=== PATIENT | female | born 1990 | race Caucasian/White ===

== ENCOUNTER 2019-02-23 06:23 | Inpatient (IN) ==
[2019-02-23] MEDS ORDERED: OXYTOCIN 30 UNITS/500 ML BAG IV PRN ×3 (06:44→18:02)
[2019-02-23] MEDS ORDERED: VANCOMYCIN HCL 1,000 MG in SODIUM CHLORIDE 0.9% 250 ML IV STA (06:44)
--- NOTE | 2019-02-23 06:44 | History & Physical Report ---
Date of Service February 23, 2019 Assessment & Plan (1) SROM (spontaneous rupture of membranes): Making cervical change. Will start vanco for Group B Strep. Will order pitocin to profile it in case it is needed, but exp mgmt of labor for now. Epidural on request. Present on Admission?: Yes History of Present Illness Chief Complaint: Patient presents due to SROM about 2 hours ago at home. Contractions have now begun and are painful enough to breathe through. No VB, good FM. Fluid is Clear. Noted to be Group B Strep positive with resistance and allergy such that Vanco is planned in labor. Primary Care Provider: NO PCP Allergies Allergy/AdvReac Type Severity Reaction Status Date / Time Penicillins Allergy Verified 02/21/19 16:48 Home Medications Home Medications Medication Instructions Recorded Confirmed Type cholecalciferol (vitamin D3) PO 02/21/19 02/21/19 History prenat.vits,marlene,[id number] PO 02/21/19 02/21/19 History Patient History Medical History Female infertility History of varicella Surgical History S/P wisdom tooth extraction Family History Mother Thyroid disease Social History Smoking Status: Never smoker Review of Systems All systems reviewed & are unremarkable except as noted in HPI & below Physical Exam Constitutional: WD/WN, vitals as above + in distress Eyes: PERRL, conjunctivae normal, anicteric sclerae ENMT: external ear and nose normal, oropharynx normal Neck: supple Respiratory: normal respiratory effort and able to speak in complete sentences; no respiratory distress Cardiovascular: Rate/Rhythm: regular rate and regular rhythm Extremities: + pedal edema Gastrointestinal (Abdomen): Gravid / AGA, nontender Musculoskeletal: no cyanosis or clubbing, extremities motor strength 5/5 Skin: no rashes, warm and dry Neurologic: patellar DTR's 2+ bilat, sensation intact Psychiatric: A+Ox3, euthymic affect Genitourinary: Speculum/Bimanual Exam: no vaginal lesions, no vaginal bleeding and uterus nontender OB Exam Abdomen: + vertex, + estimated weight (7) and + regular contractions (Q3) Manual OB Exam: + cervical dilation 3 cm, + cervical effacement 100%, + station -2 and + amniotic fluid clear and nitrazine positive OB Exam Monitor Tracing: + external FHT monitor used, + external uterine monitor used and + category I Lymphatic: no cervical or axillary lymphadenopathy
[2019-02-23] MEDS: LACTATED RINGER'S 1,000 ML IV PRN ×3 (07:00→14:05)
[2019-02-23 07:03] LABS: Hematocrit (blood only) 33.6 % (37-47); Hemoglobin 11.6 g/dL (12.0-16.0); Mean Corpuscular Volume 92.1 fL (80-100); Mean Platelet Volume 10.3 fL (7.4-10.4); Platelet Count 195 K/uL (130-400); RDW Coefficient of Variation 13.4 % (11.5-14.5); RDW Standard Deviation 44.9 fL (36.4-46.3); Red Blood Count 3.65 M/uL (4.2-5.4); White Blood Count 18.87 K/uL (4.8-10.8)
[2019-02-23 07:15] LABS: Mean Corpuscular Hgb Conc 34.5 g/dL (32-36)
[2019-02-23] MEDS ORDERED: fentaNYL citrate 100 MCG/2 ML VIAL ONE (07:17)
[2019-02-23] MEDS ORDERED: ePHEDrine sulfate 50 MG/ML AMP ONE (07:17)
[2019-02-23] MEDS ORDERED: BUPIVACAINE 0.25% 30 ML VIAL ONE (07:17)
[2019-02-23] MEDS ORDERED: fentaNYL 2MCG/ML ROPIV 1.25MG/ML 100 ML BAG EPI ONE (07:18)
--- NOTE | 2019-02-23 07:24 | Anesthesiology Consultation ---
Date of Service February 23, 2019 Assessment & Plan (1) Encounter for pre-operative examination: Chart Review Chart Review: Acceptable Risk for Labor Epidural History Height/Weight Height: 5 ft 2 in Weight: 68.946 kg Allergies Allergy/AdvReac Type Severity Reaction Status Date / Time Penicillins Allergy Verified 02/21/19 16:48 Medications Home Medications Medication Instructions Recorded Confirmed Last Taken cholecalciferol (vitamin D3) PO 02/21/19 02/21/19 Unknown prenat.vits,marlene,[id number] PO 02/21/19 02/21/19 Unknown Active Medications Generic Name Dose Route Start Last Admin Trade Name Freq PRN Reason Stop Dose Admin Lactated Ringer's 1,000 mls @ 125 mls/hr 02/23/19 06:44 02/23/19 07:00 Lr IV 02/25/19 06:43 999 mls/hr .Q8H PRN Administration L&D Protocol Protocol Past Medical History Medical History Female infertility History of varicella Past Family History Family History Mother Thyroid disease Past Surgical History Surgical History S/P wisdom tooth extraction Social History Smoking Status: Never smoker Hx Alcohol Use: No Hx Substance Use: No Physical Exam Vital Signs Last Vital Signs Temp 36.8 C 02/23/19 06:35 Pulse 100 H 02/23/19 06:39 Resp 18 02/23/19 06:39 BP 144/77 H 02/23/19 06:39 Testing Laboratory Results 02/23/19 06:51
[2019-02-23] MEDS ORDERED: NALOXONE HCL 1 MG in SODIUM CHLORIDE 0.9% 1000ML 1,000 ML IV PRN (07:46)
[2019-02-23] MEDS ORDERED: NALOXONE HCL 0.4 MG/1 ML VIAL/CARP IV PRN (07:46)
[2019-02-23] MEDS ORDERED: fentaNYL 2MCG/ML ROPIV 1.25MG/ML 100 ML BAG EPI PRN (07:46)
[2019-02-23] MEDS ORDERED: ONDANSETRON INJ 2 MG/ML 2 ML VIAL IV PRN (07:46)
[2019-02-23] MEDS ORDERED: ePHEDrine sulfate 50 MG/ML AMP IV PRN (07:46)
--- NOTE | 2019-02-23 11:18 | Obstetrical Progress Note ---
Date of Service February 23, 2019 Subjective Patient has been on vancomycin for GBS prophylaxis due to PCN allergy and clindamycin resistance. Now has maternal fever and tachycardia. Will give IV fluid bolus, and will start gentamicin 5mg/kg Q24h dose for chorioamnionitis. Results & Data Vital Signs (Past 12 Hours) Vital Signs Temp Pulse Resp BP Pulse Ox 02/23/19 11:16 92 H 97 02/23/19 11:11 85 97 02/23/19 11:07 85 117/69 02/23/19 11:06 83 97 02/23/19 11:01 96 H 99 02/23/19 10:56 91 H 98 02/23/19 10:51 91 H 117/67 98 02/23/19 10:46 85 98 02/23/19 10:41 87 97 02/23/19 10:36 86 118/66 98 02/23/19 10:31 89 98 02/23/19 10:26 97 H 98 02/23/19 10:21 96 H 143/98 H 98 02/23/19 10:16 85 97 02/23/19 10:11 97 H 98 02/23/19 10:06 91 H 108/61 99 02/23/19 10:01 81 99 02/23/19 09:56 83 99 02/23/19 09:52 84 91 02/23/19 09:51 84 118/65 98 02/23/19 09:46 85 99 02/23/19 09:41 83 99 02/23/19 09:37 77 115/63 02/23/19 09:36 80 98 02/23/19 09:31 81 99 02/23/19 09:26 83 98 02/23/19 09:22 82 113/60 02/23/19 09:21 86 99 02/23/19 09:16 84 99 02/23/19 09:15 18 02/23/19 09:11 85 99 02/23/19 09:07 83 115/65 02/23/19 09:06 85 99 02/23/19 09:01 79 99 02/23/19 09:00 18 02/23/19 08:56 81 99 02/23/19 08:54 80 93 02/23/19 08:51 84 111/65 100 02/23/19 08:46 83 99 02/23/19 08:45 18 02/23/19 08:41 78 99 02/23/19 08:36 76 115/67 99 02/23/19 08:31 81 99 02/23/19 08:30 20 02/23/19 08:26 79 98 02/23/19 08:22 76 129/82 02/23/19 08:21 80 98 02/23/19 08:16 82 99 02/23/19 08:15 20 02/23/19 08:11 83 99 02/23/19 08:06 77 119/69 99 02/23/19 08:01 84 98 02/23/19 08:00 98.4 F 82 20 120/70 02/23/19 07:56 77 98 02/23/19 07:55 74 112/63 02/23/19 07:51 77 99 02/23/19 07:49 78 117/64 02/23/19 07:47 80 119/65 02/23/19 07:46 81 99 02/23/19 07:45 76 117/64 02/23/19 07:43 75 117/62 02/23/19 07:41 83 118/65 98 02/23/19 07:36 86 99 02/23/19 07:31 88 99 02/23/19 07:26 92 H 100 02/23/19 06:39 100 H 18 144/77 H 02/23/19 06:35 98.2 F PG Care Time/CCT Total # of Minutes Spent Total Time Spent with Patient: Total time spent is greater than 50% in coordination of care (as documented) at patient's floor/unit and/or counseling patient:
[2019-02-23] MEDS ORDERED: GENTAMICIN CONSULT ACTIVE PRN (11:23)
[2019-02-23] MEDS ORDERED: GENTAMICIN SULFATE 280 MG in DEXTROSE 5% 100 ML IV SCH (11:30)
[2019-02-23] MEDS: GENTAMICIN SULFATE 340 MG in DEXTROSE 5% 100 ML IV SCH (12:18)
[2019-02-23 12:41] LABS: Creatinine Clr Calc Pharmacy 83.9 ml/min; Est GFR (African American) 100.1; Est GFR (Non-African American) 86.4
--- NOTE | 2019-02-23 12:41 | Obstetrical Progress Note ---
Date of Service February 23, 2019 Subjective FHT 170-180s. Moderate variability. +accels. Occasional variable decelerations. SVE 5-6/90/0. Bloody show. [place] Q 5 Most recent temp 37.9. Currently on Vanco/Gent. Patient has made cervical change, but will start pitocin to improve contration pattern. Discussed with patient/family - questions answered. Results & Data Vital Signs (Past 12 Hours) Vital Signs Temp Pulse Resp BP Pulse Ox 02/23/19 12:36 93 H 98 02/23/19 12:31 101 H 99 02/23/19 12:26 92 H 98 02/23/19 12:23 37.9 C H 20 02/23/19 12:22 91 H 126/70 02/23/19 12:21 89 99 02/23/19 12:16 87 98 02/23/19 12:11 87 99 02/23/19 12:07 82 117/64 02/23/19 12:06 94 H 98 02/23/19 12:01 83 97 02/23/19 11:56 86 97 02/23/19 11:51 84 112/62 98 02/23/19 11:46 80 98 02/23/19 11:41 86 98 02/23/19 11:36 92 H 116/68 99 02/23/19 11:31 91 H 100 02/23/19 11:26 97 H 99 02/23/19 11:21 86 111/65 98 02/23/19 11:16 92 H 97 02/23/19 11:13 38.2 C H 20 02/23/19 11:11 85 97 02/23/19 11:07 85 117/69 02/23/19 11:06 83 97 02/23/19 11:01 96 H 99 02/23/19 10:56 91 H 98 02/23/19 10:51 91 H 117/67 98 02/23/19 10:46 85 98 02/23/19 10:41 87 97 02/23/19 10:36 86 118/66 98 02/23/19 10:31 89 98 02/23/19 10:26 97 H 98 02/23/19 10:21 96 H 143/98 H 98 02/23/19 10:16 85 97 02/23/19 10:11 97 H 98 02/23/19 10:06 91 H 108/61 99 02/23/19 10:01 81 99 02/23/19 09:56 37.1 C 83 20 99 02/23/19 09:52 84 91 02/23/19 09:51 84 118/65 98 02/23/19 09:46 85 99 02/23/19 09:41 83 99 02/23/19 09:37 77 115/63 02/23/19 09:36 80 98 02/23/19 09:31 81 99 02/23/19 09:26 83 98 02/23/19 09:22 82 113/60 02/23/19 09:21 86 99 02/23/19 09:16 84 99 02/23/19 09:15 18 02/23/19 09:11 85 99 02/23/19 09:07 83 115/65 02/23/19 09:06 85 99 02/23/19 09:01 79 99 02/23/19 09:00 18 02/23/19 08:56 81 99 02/23/19 08:54 80 93 02/23/19 08:51 84 111/65 100 02/23/19 08:46 83 99 02/23/19 08:45 18 02/23/19 08:41 78 99 02/23/19 08:36 76 115/67 99 02/23/19 08:31 81 99 02/23/19 08:30 20 02/23/19 08:26 79 98 02/23/19 08:22 76 129/82 02/23/19 08:21 80 98 02/23/19 08:16 82 99 02/23/19 08:15 20 02/23/19 08:11 83 99 02/23/19 08:06 77 119/69 99 02/23/19 08:01 84 98 02/23/19 08:00 36.9 C 82 20 120/70 02/23/19 07:56 77 98 02/23/19 07:55 74 112/63 02/23/19 07:51 77 99 02/23/19 07:49 78 117/64 02/23/19 07:47 80 119/65 02/23/19 07:46 81 99 02/23/19 07:45 76 117/64 02/23/19 07:43 75 117/62 02/23/19 07:41 83 118/65 98 02/23/19 07:36 86 99 02/23/19 07:31 88 99 02/23/19 07:26 92 H 100 02/23/19 06:39 100 H 18 144/77 H 02/23/19 06:35 36.8 C PG Care Time/CCT Total # of Minutes Spent Total Time Spent with Patient: Total time spent is greater than 50% in coordination of care (as documented) at patient's floor/unit and/or counseling patient:
--- NOTE | 2019-02-23 13:26 | Pharmacy Report ---
Pharmacy Abx Initial Consult - Date of Service February 23, 2019 - Pharmacy Dosing Scope Date of Consult: 02/23 Consultation requested by: Dr. Ge Pharmacy is consulted to initiate gentamicin dosing therapy, order appropriate labs and adjust drug dose/frequency. - Subjective The patient is a 28 year old F admitted on 02/23/19 06:44. - Objective Height: 5 ft 2 in Weight: 68.946 kg Lab Results (24hrs): Laboratory Tests (24 Hours) 02/23/19 02/23/19 12:10 06:51 WBC 18.87 H Creatinine 0.90 Est Cr Clr Drug Dosing 83.9 - Assessment & Plan Assessment/Plan: 28 year old female started on gentamicin for concern of chorioamnionitis. Vancomycin ordered prn for GBS positive. Currently labor being induced. Gentamicin: * Ordered gentamicin 340 mg iv Q24 hrs (~5 mg/kg based on actual body weight) * CrCl >60 ml/min (CrCl ~84 ml/min), therefore extended interval dosing for gentamicin is preferred. Both extended and conventional dosing has been studied in intrapartum and patients. More data is available for use of extended interval dosing in * If therapy is to be continued >/=72 hours and renal function remains stable will consider checking trough level 30 mins prior to the next dose (target trough level <1 mcg/ml) Pharmacy will continue to follow and will adjust dose/frequency as necessary. Thank you.
[2019-02-23] MEDS ORDERED: ACETAMINOPHEN 500 MG TAB PO STA (13:59)
--- NOTE | 2019-02-23 16:18 | Obstetrical Progress Note ---
Date of Service February 23, 2019 Subjective Patient feeling increased pressure with ctx. FHT 170s, moderate variability, +accels. Occasional variable decels. Windber Q 2-3 min SVE 8/100/0 Temp 38.9, maternal pulse wnl. tachy. Continue antibiotics, tylenol Q6. Since moderate variability in FHT and patient making cervical change, will continue to labor. Anticipate . Results & Data Vital Signs (Past 12 Hours) Vital Signs Temp Pulse Resp BP Pulse Ox 02/23/19 16:11 82 97 02/23/19 16:07 98 H 130/56 L 02/23/19 16:06 91 H 96 02/23/19 16:01 95 H 99 02/23/19 15:56 95 H 95 02/23/19 15:51 81 124/64 96 02/23/19 15:46 83 96 02/23/19 15:45 80 94 02/23/19 15:41 89 95 02/23/19 15:39 79 94 02/23/19 15:37 87 120/67 02/23/19 15:36 92 H 96 02/23/19 15:31 90 97 02/23/19 15:27 38.9 C H 20 02/23/19 15:26 84 96 02/23/19 15:21 87 115/66 96 02/23/19 15:17 78 94 02/23/19 15:16 86 95 02/23/19 15:11 88 96 02/23/19 15:06 79 121/69 96 02/23/19 15:01 82 97 02/23/19 14:56 81 96 02/23/19 14:52 78 118/65 02/23/19 14:51 78 96 02/23/19 14:46 87 98 02/23/19 14:41 84 98 02/23/19 14:37 82 128/63 02/23/19 14:36 87 97 02/23/19 14:31 94 H 99 02/23/19 14:26 87 99 02/23/19 14:21 85 120/71 100 02/23/19 14:16 82 97 02/23/19 14:11 79 97 02/23/19 14:07 82 115/68 02/23/19 14:06 83 98 02/23/19 14:01 82 99 02/23/19 13:56 84 98 02/23/19 13:52 90 117/70 02/23/19 13:51 87 97 02/23/19 13:46 84 97 02/23/19 13:41 83 100 02/23/19 13:37 87 118/67 02/23/19 13:36 83 98 02/23/19 13:31 85 99 02/23/19 13:26 96 H 98 02/23/19 13:25 37.8 C H 20 02/23/19 13:21 88 117/63 98 02/23/19 13:16 84 98 02/23/19 13:11 93 H 98 02/23/19 13:06 87 110/68 98 02/23/19 13:01 98 H 98 02/23/19 12:56 85 99 02/23/19 12:51 89 130/68 98 02/23/19 12:46 100 H 98 02/23/19 12:41 97 H 97 02/23/19 12:36 93 H 98 02/23/19 12:31 101 H 99 02/23/19 12:26 92 H 98 02/23/19 12:23 37.9 C H 20 02/23/19 12:22 91 H 126/70 02/23/19 12:21 89 99 02/23/19 12:16 87 98 02/23/19 12:11 87 99 02/23/19 12:07 82 117/64 02/23/19 12:06 94 H 98 02/23/19 12:01 83 97 02/23/19 11:56 86 97 02/23/19 11:51 84 112/62 98 02/23/19 11:46 80 98 02/23/19 11:41 86 98 02/23/19 11:36 92 H 116/68 99 02/23/19 11:31 91 H 100 02/23/19 11:26 97 H 99 02/23/19 11:21 86 111/65 98 02/23/19 11:16 92 H 97 02/23/19 11:13 38.2 C H 20 02/23/19 11:11 85 97 02/23/19 11:07 85 117/69 02/23/19 11:06 83 97 02/23/19 11:01 96 H 99 02/23/19 10:56 91 H 98 02/23/19 10:51 91 H 117/67 98 02/23/19 10:46 85 98 02/23/19 10:41 87 97 02/23/19 10:36 86 118/66 98 02/23/19 10:31 89 98 02/23/19 10:26 97 H 98 02/23/19 10:21 96 H 143/98 H 98 02/23/19 10:16 85 97 02/23/19 10:11 97 H 98 02/23/19 10:06 91 H 108/61 99 02/23/19 10:01 81 99 02/23/19 09:56 37.1 C 83 20 99 02/23/19 09:52 84 91 02/23/19 09:51 84 118/65 98 02/23/19 09:46 85 99 02/23/19 09:41 83 99 02/23/19 09:37 77 115/63 02/23/19 09:36 80 98 02/23/19 09:31 81 99 02/23/19 09:26 83 98 02/23/19 09:22 82 113/60 02/23/19 09:21 86 99 02/23/19 09:16 84 99 02/23/19 09:15 18 02/23/19 09:11 85 99 02/23/19 09:07 83 115/65 02/23/19 09:06 85 99 02/23/19 09:01 79 99 02/23/19 09:00 18 02/23/19 08:56 81 99 02/23/19 08:54 80 93 02/23/19 08:51 84 111/65 100 02/23/19 08:46 83 99 02/23/19 08:45 18 02/23/19 08:41 78 99 02/23/19 08:36 76 115/67 99 02/23/19 08:31 81 99 02/23/19 08:30 20 02/23/19 08:26 79 98 02/23/19 08:22 76 129/82 02/23/19 08:21 80 98 02/23/19 08:16 82 99 02/23/19 08:15 20 02/23/19 08:11 83 99 02/23/19 08:06 77 119/69 99 08/06/19 08:01 84 98 02/23/19 08:00 36.9 C 82 20 120/70 02/23/19 07:56 77 98 02/23/19 07:55 74 112/63 02/23/19 07:51 77 99 02/23/19 07:49 78 117/64 02/23/19 07:47 80 119/65 02/23/19 07:46 81 99 02/23/19 07:45 76 117/64 02/23/19 07:43 75 117/62 02/23/19 07:41 83 118/65 98 02/23/19 07:36 86 99 02/23/19 07:31 88 99 02/23/19 07:26 92 H 100 02/23/19 06:39 100 H 18 144/77 H 02/23/19 06:35 36.8 C PG Care Time/CCT Total # of Minutes Spent Total Time Spent with Patient: Total time spent is greater than 50% in coordination of care (as documented) at patient's floor/unit and/or counseling patient:
[2019-02-23] MEDS ORDERED: OXYCODONE/ACETAMINOPHEN 5mg/325mg TAB PO PRN (17:47)
[2019-02-23] MEDS ORDERED: ACETAMINOPHEN 325 MG TAB PO PRN (17:47)
--- NOTE | 2019-02-23 17:54 | Delivery Summary ---
Vaginal Delivery Summary Date of Service February 23, 2019 Vaginal Delivery Summary Vaginal Delivery Summary: Pre-delivery diagnoses: 28yo @ 38 5/7, spontaneous labor with SROM at home, IUI/letrozole conception, GBS+, Rh negative, chorioamnionitis Post-delivery diagnoses: same, 1st degree perineal laceration Procedure: spontaneous vaginal delivery, repair of 1st degree perineal laceration Surgeon: Shaye Ge DO Complications: none Findings: Viable female . Apgars: 8/9. Weight pending, please see nursery records. Estimated blood loss: 300ml Description of delivery: The patient presented early this morning for my partner in spontaneous labor with SROM at home 2 hours prior to arrival. She received vancomycin for GBS prophylaxis due to PCN allergy and clindamycin resistance. She then developed tachycardia and maternal fever and gentamicin was added to antibiotic regimen, based on Up-To-Date recs for chorioamnionitis treatment in patients with PCN allergy and clinda resistance. She progressed to complete with epidural anesthesia. She then began to push. She spontaneously vaginally delivered a viable female from the cephalic presentation. Head descended in an asynclytic presentation and turned to ABRAHAM position for delivery. Nuchal cord x 1 easily reduced. The anterior shoulder delivered, followed by the posterior shoulder, followed by the body. The baby was placed on mother's abdomen and a spontaneous cry was heard. Delayed cord clamping was employed, and the cord was doubly clamped and cut. A segment was retained for cord gases. Cord blood was obtained. The placenta was delivered spontaneously intact with a 3-vessel cord. The uterus and vagina were swept of clots and debris. IV pitocin was given. The uterus became firm. The cervix, vagina, and perineum were inspected and a 1st degree laceration was noted and repaired in standard fashion. Excellent hemostasis was observed. The mother and baby are recovering in stable and good condition in the room. Sponge, needle, and instrument counts were correct x 2. Plan is to continue antibiotics for 24h post-delivery. Shaye Ge DO [facility] [place]
[2019-02-23] MEDS ORDERED: DIPHTHERIA/TETANUS/PERTUSSIS 0.5 ML SYR/VIAL IM ONE (18:02)
[2019-02-23] MEDS ORDERED: HYDROCORTISONE ACETATE 25 MG SUPP PR PRN (18:02)
[2019-02-23] MEDS ORDERED: SUPERCREAM 0.870% 15 GM JAR EXT PRN (18:02)
[2019-02-23] MEDS ORDERED: BENZOCAINE 20% AER SPR 82.5 GM CAN EXT PRN (18:02)
[2019-02-23 18:16] LABS: Base Excess Cord Arterial Bld -7.5 mEq/L (-9-1.8); CO2 Cord Arterial Blood 48 mmHg (39.1-73.5); HCO3 Cord Arterial Blood 20 mmol/L (19.7-28.5); pH Cord Arterial Blood 7.24 (7.1-7.38)
[2019-02-23 18:17] LABS: Oxygen Sat Cord Arterial Blood < 60.0 % (<60)
[2019-02-23 18:20] LABS: Cord Venous Blood HCO3 21 mmol/L (18.4-26.8); Cord Venous Blood PCO2 43 mmHg (30.4-57.2); Cord Venous Blood PO2 25 mmHg (14.1-43.3); Cord Venous Blood pH 7.31 (7.20-7.44)
[2019-02-23 18:21] LABS: O2 Saturation Cord Venous Bld < 60.0 % (<68)
[2019-02-23] MEDS ORDERED: VANCOMYCIN HCL 1,000 MG in SODIUM CHLORIDE 0.9% 250 ML IV PRN (18:45)
--- NOTE | 2019-02-23 18:45 | Anesthesia Procedure Note ---
Date of Service February 23, 2019 Anesthesia Post Epidural Note Vital Signs Vital Signs: Temp Pulse Resp BP Pulse Ox 38.9 C H 102 H 20 110/58 L 94 02/23/19 15:27 02/23/19 18:36 02/23/19 15:27 02/23/19 18:36 02/23/19 17:31 Notes Mental Status: alert / awake / arousable and participated in evaluation Nausea / Vomiting: adequately controlled Pain: adequately controlled Airway Patency, RR, SpO2: stable & adequate BP & HR: stable & adequate Hydration State: stable & adequate Neuraxial Anesthesia: was administered and sensory block is resolving Anesthetic Complications: no major complications apparent Epidural: Removed without complications and With tip intact
[2019-02-23] MEDS: IBUPROFEN 600 MG TAB PO PRN (19:05)
[2019-02-23] MEDS: VANCOMYCIN HCL 1,000 MG in SODIUM CHLORIDE 0.9% 250 ML IV SCH (20:25)
[2019-02-23] MEDS: DOCUSATE SODIUM 100 MG CAP PO SCH (20:29)
[2019-02-24] MEDS: IBUPROFEN 600 MG TAB PO PRN (05:27)
[2019-02-24 06:16] LABS: Hematocrit (blood only) 31.9 % (37-47); Hemoglobin 10.6 g/dL (12.0-16.0); Mean Corpuscular Hgb Conc 33.2 g/dL (32-36); Mean Corpuscular Volume 94.1 fL (80-100); Mean Platelet Volume 10.4 fL (7.4-10.4); Platelet Count 190 K/uL (130-400); RDW Coefficient of Variation 13.7 % (11.5-14.5); Red Blood Count 3.39 M/uL (4.2-5.4); White Blood Count 22.41 K/uL (4.8-10.8)
[2019-02-24 06:55] LABS: Creatinine Clr Calc Pharmacy 79.5 ml/min; Est GFR (African American) 93.8; Est GFR (Non-African American) 80.9
--- NOTE | 2019-02-24 07:08 | Obstetrical Progress Note ---
Date of Service <Olga Juarez MD - Last Filed: 02/24/19 07:14> February 24, 2019 Assessment & Plan <Olga Juarez MD - Last Filed: 02/24/19 07:14> (1) Encounter for care and examination after delivery: PPD1 s/p complicated by GBS+ swab and possible Chorioamnionitis Received 1 dose gentamicin, 1 dose vancomycin IV. Has been afebrile since 8pm 02/23. Monitoring vitals and labs for improvement. Appears to be healing well, consider discharge tomorrow morning. Subjective <Olga Juarez MD - Last Filed: 02/24/19 07:14> Ambulation: limited ambulation Voiding: no voiding problems Passing Gas:: Yes Diet Tolerance:: regular diet (hasn't eaten yet) Lochia:: Moderate Feeding Type:: breast feeding Current Pain Level(1-10): 0 Constitutional: + fatigue; no fever and no chills Respiratory: no cough and no dyspnea No shortness of breath Cardiovascular: + edema; no chest pain, no syncope and no calf pain Breast: no breast pain Gastrointestinal: + cramping; no abdominal pain, no nausea, no vomiting, no constipation and no diarrhea/loose stools Genitourinary (female): no dysuria and no difficulty urinating Neurologic: no headache(s) Physical Exam <Olga Juarez MD - Last Filed: 02/24/19 07:14> Constitutional well developed and well nourished Respiratory normal respiratory effort; no respiratory distress, no labored breathing and no cough Auscultation: no crackles, no rales, no rhonchi and no wheezes Cardiovascular Rate/Rhythm: regular rate and regular rhythm Heart Sounds: no gallop, no murmur and no cardiac rub Extremities: + pedal edema (BL to ankles) Gastrointestinal (Abdomen) Inspection/Auscultation: + abdomen distended and normal bowel sounds Percussion/Palpation: + abdomen tender and abdomen soft; no guarding Genitourinary Uterus firm, palpable at umbilicus, some tenderness to palpation. Results & Data <Olga Juarez MD - Last Filed: 02/24/19 07:14> Vital Signs (Past 12 Hours) Vital Signs Temp Pulse Pulse Resp BP BP Pulse Ox 02/24/19 04:00 36.7 C 78 16 119/73 100 02/24/19 00:39 36.6 C 77 16 107/66 100 02/23/19 20:20 36.8 C 96 H 18 109/73 98 02/23/19 19:36 103 H 107/81 02/23/19 19:21 105 H 109/58 L <Shaye Ge DO - Last Filed: 02/24/19 07:34> Co-Signing Physician Notes Resident Physician Supervision Note: I interviewed and examined the patient. Discussed with Dr. Juarez and agree with findings and plan as documented in the note. Any exceptions or clarifications are listed here: PPD#1 doing well. No fevers since yesterday prior to delivery. Continue ABX until 24h , continue monitoring for fever. Anticipate DC home tomorrow. Documented By: Shaye Ge DO
[2019-02-24] MEDS: PRENATAL VITAMIN 1 TAB PO SCH (07:50)
[2019-02-24] MEDS: DOCUSATE SODIUM 100 MG CAP PO SCH ×2 (07:50→21:01)
[2019-02-24] MEDS: VANCOMYCIN HCL 1,000 MG in SODIUM CHLORIDE 0.9% 250 ML IV SCH (08:56)
[2019-02-24] MEDS ORDERED: NON-FORMULARY MEDICATION (Prenatal Vit-Iron Fum-Folic Ac [Prenatal Vitamin] 1 TAB) PO SCH (09:00)
[2019-02-24] MEDS: GENTAMICIN SULFATE 340 MG in DEXTROSE 5% 100 ML IV SCH (11:48)
[2019-02-24] MEDS ORDERED: BISACODYL 5 MG TABEC PO SCH (20:00)
[2019-02-25] MEDS: IBUPROFEN 600 MG TAB PO PRN ×2 (01:17→07:55)
[2019-02-25] MEDS ORDERED: BISACODYL 10 MG SUPP PR PRN (06:00)
--- NOTE | 2019-02-25 07:00 | Obstetrical Progress Note ---
Date of Service <Olga Juarez MD - Last Filed: 02/25/19 07:00> February 25, 2019 Assessment & Plan <Olga Juarez MD - Last Filed: 02/25/19 07:00> (1) Encounter for care and examination after delivery: PPD2 after with SROM Doing well this morning. Ambulating, tolerating PO diet and fluids, No complaints this morning Pain and cramping well controlled with motrin. Discussed discharge instructions, discharge later today. Subjective <Olga Juarez MD - Last Filed: 02/25/19 07:00> Ambulation: ambulating normally Voiding: no voiding problems Passing Gas:: Yes Diet Tolerance:: regular diet Feeding Type:: breast feeding Current Pain Level(1-10): 0 Constitutional: + fatigue; no fever and no chills Respiratory: no cough and no dyspnea No shortness of breath Cardiovascular: + edema; no chest pain, no syncope and no calf pain Breast: no breast pain Gastrointestinal: + cramping; no abdominal pain, no nausea, no vomiting, no constipation and no diarrhea/loose stools Genitourinary (female): no dysuria and no difficulty urinating Neurologic: no headache(s) Physical Exam <Olga Juarez MD - Last Filed: 02/25/19 07:00> Constitutional well developed and well nourished Respiratory normal respiratory effort; no respiratory distress, no labored breathing and no cough Auscultation: no crackles, no rales, no rhonchi and no wheezes Cardiovascular Rate/Rhythm: regular rate and regular rhythm Heart Sounds: no gallop, no murmur and no cardiac rub Extremities: + pedal edema Gastrointestinal (Abdomen) Inspection/Auscultation: + abdomen distended and normal bowel sounds Percussion/Palpation: + abdomen tender and abdomen soft; no guarding Genitourinary Uterus firm, palpable at umbilicus, some tenderness to palpation. Results & Data <Olga Juarez MD - Last Filed: 02/25/19 07:00> Vital Signs (Past 12 Hours) Vital Signs Temp Pulse Resp BP 02/25/19 00:13 37.0 C 85 18 120/67 02/24/19 20:00 36.6 C 91 H 18 121/71 <Eliana Lassiter MD, FACOG - Last Filed: 02/25/19 08:28> Co-Signing Physician Notes Resident Physician Supervision Note: I interviewed and examined the patient. Discussed with Dr. Juarez and agree with findings and plan as documented in the note. Any exceptions or clarifications are listed here: [None] Documented By: Eliana Lassiter MD, FACOG
[2019-02-25] MEDS: DOCUSATE SODIUM 100 MG CAP PO SCH (07:53)
[2019-02-25] MEDS: PRENATAL VITAMIN 1 TAB PO SCH (07:53)
[2019-02-25 08:02] LABS: Hematocrit (blood only) 28.5 % (37-47); Hemoglobin 9.7 g/dL (12.0-16.0)
[2019-02-25 08:27] LABS: Creatinine Clr Calc Pharmacy 93.2 ml/min; Est GFR (African American) 113.8; Est GFR (Non-African American) 98.1
== END 2019-02-25 12:20 | disposition home or self-care (01) | DRG 805 ==
LOC: OPB 06:23 → 4S1 06:29 → 4S2 20:36